=== PATIENT | female | born 1995 | race Caucasian/White ===

== ENCOUNTER → 2020-11-10 | Outpatient (CLI) | payer BC ==
[~2020-11-10] VITALS: Ht 162.6 cm; Wt 100.0 kg
[~2020-11-10] MED LIST: CASIRIVIMAB/IMDEVIMAB 1,200 MG in NS (IVPB) 250 ML IV ONE; EPINEPHrine INJECTION 1 MG/ML AMP IM PRN; diphenhydrAMINE 50 MG/ML INJ (BENADRYL) IV PRN
[2020-11-10 11:30] VITALS: BP 138/96
== END ==
LOC: INFUSION 11:26
PROVIDERS: ATTEND Nurse Practitioner Family
DX: Z23 Encounter for immunization (principal); U07.1 COVID-19

== ENCOUNTER → 2021-05-19 | Outpatient (CLI) | payer BC ==
--- NOTE | 2021-05-19 14:43 | Diagnostic Imaging Report ---
INDICATION: survey. TECHNIQUE: Multiple real-time grayscale images were obtained over the gravid uterus. COMPARISON: None FINDINGS: There is a single live fetus in breech presentation. heart rate was recorded at 153 bpm. Placenta is posterior. No previa is detected. Amniotic fluid volume is normal. Cervical length is 4.5 cm. survey demonstrates kidneys, bladder and stomach to be unremarkable. brain is unremarkable. There is a three-vessel cord with normal insertion. spine is unremarkable. Four chamber heart view as well as outflow tracts are somewhat limited due to position. Biometrical measurements are as follows: Biparietal 4.41 cm, age 19 weeks 3 days. Head circumference 17.17 cm, age 19 weeks 6 days. Abdominal circumference 14.79 cm, age 20 weeks 1 days. Femur length 3.06 cm, age 19 weeks 4 days. Sonographic estimate age: 19 weeks 6 days. Sonographic estimated date of delivery: 10/07/2021. Estimated Weight: 312 gm (+/- 46 gm). LMP percentile: 49%. heart rate: 153 beats per minute. number: 1 of 1. IMPRESSION: 1. Single live IUP 19 weeks 6 days gestational age. Estimated date of confinement sonographic 10/07/2021. 2. Unremarkable survey although four-chamber heart view and outflow tracts was limited due to position. Follow-up could be performed. Dictated by: Dictated on workstation # [id number]
== END ==
LOC: RAD 10:00
PROVIDERS: ATTEND Obstetrics & Gynecology
DX: Z36.3 Encounter for antenatal screening for malformations (principal); Z3A.19 19 weeks gestation of pregnancy
CPT/HCPCS: 76805

== ENCOUNTER → 2021-07-20 | Outpatient (CLI) | payer BC ==
--- NOTE | 2021-07-20 11:07 | Diagnostic Imaging Report ---
INDICATION: Follow-up four-chamber heart view. TECHNIQUE: Multiple real-time grayscale images were obtained over the gravid uterus. COMPARISON: 05/19/2021. FINDINGS: There is a single live fetus in a cephalic presentation. heart rate was recorded at 140 bpm. Placenta is posterior. Amniotic fluid volume is normal. No placenta previa is seen. Cervical length is 3.8 cm. Follow-up of anatomy is unremarkable. Four-chamber heart view is unremarkable. IMPRESSION: Unremarkable follow-up ultrasound. Dictated by: Dictated on workstation # [id number]
== END ==
LOC: RAD 10:00
PROVIDERS: ATTEND Obstetrics & Gynecology
DX: Z36.89 Encounter for other specified antenatal screening (principal)
CPT/HCPCS: 76816

== ENCOUNTER 2021-09-23 08:16 | Inpatient (IN) | payer BC ==
[~2021-09-23] VITALS: Ht 162.6 cm; Wt 113.4 kg
[2021-09-23] VITALS (33 sets, daily range): BP systolic 95–160; BP diastolic 49–106
[2021-09-23 08:43] LABS: BILIRUBIN,URINE NEGATIVE (NEGATIVE); CLARITY,URINE CLEAR; COLOR,URINE YELLOW; GLUCOSE, URINE (UA) NEGATIVE (NEGATIVE); KETONES,URINE NEGATIVE (NEGATIVE); LEUKOCYTE ESTERASE ,URINE NEGATIVE (NEGATIVE); NITRITE,URINE NEGATIVE (NEGATIVE); PH,URINE 6.5 (5-9); PROTEIN,URINE TRACE (NEGATIVE)
[2021-09-23 08:51] LABS: AMORPHOUS SEDIMENT,UR FEW AMOR URATES /LPF; BACTERIA,URINE MODERATE /HPF
[2021-09-23 09:41] LABS: BASOPHILS % (AUTO) 0 % (0-10); EOSINOPHILS # (AUTO) 0.1 10^3/uL (0.0-0.3); EOSINOPHILS % (AUTO) 1 % (0-10); HEMATOCRIT 38 % (35-52); HEMOGLOBIN 12.3 g/dL (11.5-16.0); LYMPHOCYTES % (AUTO) 18 % (12-44); MEAN CORPUSCULAR HEMOGLOBIN 30 pg (25-34); MEAN CORPUSCULAR HGB CONC 33 g/dL (32-36); MEAN CORPUSCULAR VOLUME 92 fL (80-99); MEAN PLATELET VOLUME 10.6 fL (9.0-12.2); MONOCYTES # (AUTO) 0.6 10^3/uL (0.0-1.0); MONOCYTES % (AUTO) 6 % (0-12); NEUTROPHILS # (AUTO) 8.3 10^3/uL (1.8-7.8); NEUTROPHILS % (AUTO) 75 % (42-75); PLATELET COUNT 293 10^3/uL (130-400); WHITE BLOOD COUNT 11.1 10^3/uL (4.3-11.0)
[2021-09-23 09:59] LABS: ALBUMIN 3.3 GM/DL (3.2-4.5); POTASSIUM 3.4 MMOL/L (3.6-5.0)
--- NOTE | 2021-09-23 09:59 | History & Physical ---
History and Physical Date Seen by Provider: Sep 23, 2021 Time Seen by Provider: 14:10 This patient is a 26-year-old 1 female who presents at 37 weeks gestation with complaint of painful contractions and spotting. She does appear to be in labor based on regular contractions lasting about 90 seconds. She is breathing through the contractions and obviously in pain. Her GBS culture was negative. She is admitted now for labor management with anticipation for vaginal delivery. Allergies are none Medications are vitamins Medical social and surgical history is are per the antepartum record HEENT exam is normal Neck is supple no lymphadenopathy no thyromegaly Abdomen is gravid soft nontender nondistended Extremities show no clubbing or cyanosis. There is no Homans' sign. Pelvic exam per the attending nurse shows a cervix 1 cm dilated thinned out maybe 50% somewhat posterior with a vertex presentation and with bloody show Lab work is as follows Laboratory Tests Test 09/23/21 08:35 09/23/21 09:23 Range/Units Urine Color YELLOW Urine Clarity CLEAR Urine pH 6.5 5-9 Urine Specific [place] 1.020 1.016-1.022 Urine Protein 25 H 6-12 MG/DL Urine Glucose (UA) NEGATIVE NEGATIVE Urine Ketones NEGATIVE NEGATIVE Urine Nitrite NEGATIVE NEGATIVE Urine Bilirubin NEGATIVE NEGATIVE Urine Urobilinogen 0.2 < = 1.0 MG/DL Urine Leukocyte Esterase NEGATIVE NEGATIVE Urine RBC (Auto) 3+ H NEGATIVE Urine RBC 10-25 H /HPF Urine WBC 2-5 /HPF Urine Squamous Epithelial Cells 5-10 /HPF Urine Crystals PRESENT H /LPF Urine Amorphous Sediment FEW VINCE URATES H /LPF Urine Bacteria MODERATE H /HPF Urine Casts NONE /LPF Urine Mucus SMALL H /LPF Urine Culture Indicated YES Urine Creatinine 161 H 30-125 MG/DL Urine Protein/Creatinine Ratio 0.16 White Blood Count 11.1 H 4.3-11.0 10^3/uL Red Blood Count 4.08 3.80-5.11 10^6/uL Hemoglobin 12.3 11.5-16.0 g/dL Hematocrit 38 35-52 % Mean Corpuscular Volume 92 80-99 fL Mean Corpuscular Hemoglobin 30 25-34 pg Mean Corpuscular Hemoglobin Concent 33 32-36 g/dL Red Cell Distribution Width 13.3 10.0-14.5 % Platelet Count 293 130-400 10^3/uL Mean Platelet Volume 10.6 9.0-12.2 fL Immature Granulocyte % (Auto) 1 % Neutrophils (%) (Auto) 75 42-75 % Lymphocytes (%) (Auto) 18 12-44 % Monocytes (%) (Auto) 6 0-12 % Eosinophils (%) (Auto) 1 0-10 % Basophils (%) (Auto) 0 0-10 % Neutrophils # (Auto) 8.3 H 1.8-7.8 10^3/uL Lymphocytes # (Auto) 2.0 1.0-4.0 10^3/uL Monocytes # (Auto) 0.6 0.0-1.0 10^3/uL Eosinophils # (Auto) 0.1 0.0-0.3 10^3/uL Basophils # (Auto) 0.0 0.0-0.1 10^3/uL Immature Granulocyte # (Auto) 0.1 0.0-0.1 10^3/uL Vital Signs Date Time Temp Pulse Resp B/P (MAP) Pulse Ox O2 Delivery O2 Flow Rate FiO2 09/23/21 08:38 36.6 96 18 97 Room Air Patient noted to have elevated blood pressures on admission concerning for PIH Assessment and plan Term at 37 weeks gestation spontaneous labor with elevated blood pressure. Patient blood pressure was elevated last time she was seen in clinic concerning for PIH plan will be to admit expectant management initially and plan for vaginal delivery but prepared for if needed 37-week in labor Allergies and Home Medications Allergies Coded Allergies: No Known Drug Allergies (Unverified , 11/10/20) Patient Home Medication List Home Medication List Reviewed: Yes LOLA BUNN MD Sep 23, 2021 09:59
[2021-09-23 10:00] LABS: CALCIUM 8.9 MG/DL (8.5-10.1)
[2021-09-23 10:01] LABS: TOTAL PROTEIN 6.3 GM/DL (6.4-8.2)
[2021-09-23 10:03] LABS: BILIRUBIN,TOTAL 0.3 MG/DL (0.1-1.0)
[2021-09-23 10:05] LABS: CREATININE SERUM 0.66 MG/DL (0.60-1.30)
[2021-09-23 10:08] LABS: URIC ACID 5.4 MG/DL (2.6-7.2)
[2021-09-23] MEDS: LACTATED RINGERS 1,000 ML IV SCH ×2 (10:49→11:53)
[2021-09-23] MEDS ORDERED: fentaNYL INJ 100 MCG/2 ML AMP ONE (11:23)
[2021-09-23] MEDS ORDERED: BUPIVACAINE 0.25% 10 ML (SENSORCAINE) VIAL ONE (11:23)
[2021-09-23] MEDS ORDERED: fentaNYL 2 mcg/ml BUPIVA 0.125 100 ML ONE (11:26)
[2021-09-23] MEDS: fentaNYL 2 mcg/ml BUPIVA 0.125 100 ML EPI PRN ×2 (11:41→21:00)
[2021-09-23] MEDS ORDERED: ONDANSETRON 4 MG/2 ML (SDV) Z0FRAN ONE (11:56)
[2021-09-23] MEDS ORDERED: OXYTOCIN PRE-MIX DRIP 500 ML IV SCH ×2 (12:00→20:00)
[2021-09-23] MEDS: D5 LR IV SOLUTION 1,000 ML IV SCH ×3 (13:30→21:00)
[2021-09-23] MEDS ORDERED: NALOXONE 0.4 MG/ML 1 ML (NARCAN) VIAL IV PRN ×2 (14:30)
[2021-09-23] MEDS ORDERED: ONDANSETRON 4 MG/2 ML (SDV) Z0FRAN IV PRN (14:30)
[2021-09-23] MEDS ORDERED: METOCLOPRAMIDE INJ 10 MG/2 ML (REGLAN) IV PRN (14:30)
[2021-09-23] MEDS ORDERED: EPIDURAL (fentaNYL 2 MCG/ML BUPIVA 0.125%)100 ML BAG EPI PRN (14:30)
[2021-09-23] MEDS ORDERED: diphenhydrAMINE 50 MG/ML INJ (BENADRYL) IV PRN (14:30)
--- NOTE | 2021-09-23 15:53 | Discharge Inst-Surgical ---
Discharge Inst-Surgical Depart Medication/Instructions New, Converted or Re-Newed RX: Transmitted to Pharmacy Consults/Follow Up Orders & Referrals Follow Up Appt: RTC 1 week for incision check. Call to make follow up appt. for patient in 4 weeks. Wound Care: Remove chilango, apply benzoin and steri strips. Activity Per routine post instructions. Prescriptions have been transmitted electronically to patient's pharmacy for discharge medication Diet as tolerated Patient may shower or tub bathe as desired. Continue home meds Activity Activity as Tolerated: No Diet Discharge Diet: No Restrictions LOLA BUNN MD Sep 23, 2021 15:53
[2021-09-23] MEDS ORDERED: LIDOCAINE/EPI 2% 1:200,00 (XYLOCAINE) 10 ML VIAL ONE (18:30)
[2021-09-23] MEDS ORDERED: TETANUS,DIPTH,PERTUSS P/F (BOOSTRIX) 0.5 ML VIAL IM ONE (20:00)
[2021-09-23] MEDS ORDERED: BENZOCAINE/MENTHOL (DERMOPLAST) 56 ML CAN TP PRN ×2 (20:00→22:30)
[2021-09-23] MEDS ORDERED: ONDANSETRON 4 MG/2 ML (SDV) Z0FRAN IVP PRN (20:00)
[2021-09-23] MEDS: DOCUSATE SODIUM 100 MG (COLACE) CAP PO SCH (21:00)
[2021-09-23] MEDS ORDERED: KETOROLAC 30 MG/ML VIAL ONE (21:12)
[2021-09-23] MEDS ORDERED: LIDOCAINE/EPI 2% 1:100,00 (XYLOCAINE) 20 ML VIAL INJ ONE (21:15)
[2021-09-23] MEDS: KETOROLAC 30 MG/ML VIAL IVP SCH (21:17)
[2021-09-23] MEDS ORDERED: WITCH HAZEL(TUCKS) 40 EA JAR TOP PRN (21:30)
[2021-09-23] MEDS ORDERED: oxyCODONE/APAP 5/325MG (PERCOCET 5) TABLET ONE (21:56)
[2021-09-23] MEDS ORDERED: BENZOCAINE/MENTHOL (DERMOPLAST) 56 ML CAN TP ONE (21:57)
[2021-09-23] MEDS: oxyCODONE/APAP 5/325MG (PERCOCET 5) TABLET PO PRN (21:58)
[2021-09-24] MEDS ORDERED: IBUPROFEN 800 MG (MOTRIN) TAB PO SCH
[2021-09-24 00:20] VITALS: BP 122/69
[2021-09-24] MEDS: D5 LR IV SOLUTION 1,000 ML IV SCH ×2 (01:00→05:00)
[2021-09-24] MEDS: oxyCODONE/APAP 5/325MG (PERCOCET 5) TABLET PO PRN (02:00)
--- NOTE | 2021-09-24 03:58 | OPERATIVE REPORT ---
DATE OF SERVICE: 09/23/2021 DELIVERY NOTE The patient delivered by term spontaneous vaginal delivery at 37 weeks gestation a viable female infant with Apgars of and 3, 8, 9 at 1, 5 and 10 minutes respectively. time of 183. Cord blood gas of 7.09 and a weight of 7 pounds 5 ounces. Delivery was accomplished over a second-degree perineal laceration under epidural analgesia. The was bulb suctioned on delivery of the head and again on completion of delivery. Umbilical cord was doubly clamped, the father cut the cord, the baby was taken to the warmer due to the patient's suppressed state on delivery having been pushed from the high station to delivery with 1 to 2 pushes. The recovered promptly. The placenta delivered fairly promptly spontaneously Bhagat. It was normal with a 3-vessel cord. The cervix, vagina, rectum, and perineum were examined and found intact, except for a second-degree perineal laceration that was repaired with a single suture of 3-0 Vicryl Rapide in the usual manner without difficulty, good hemostasis and good reapproximation. Sponge and needle counts were correct on completion of delivery and repair. EBL was around 300 mL. Sponge and needle counts were correct. The patient tolerated the delivery and the repair well and remained in the LDR for recovery. The baby remained with the mom. Job ID: [id number] DocumentID: [id number] Dictated Date: 09/23/2021 19:33:05 Stripper Cutter Machine Date: 09/24/2021 03:57:34 Dictated By: LOLA BUNN MD MTDD
[2021-09-24 04:00] VITALS: BP 122/69
[2021-09-24] MEDS: KETOROLAC 30 MG/ML VIAL IVP SCH (04:09)
[2021-09-24] MEDS: fentaNYL 2 mcg/ml BUPIVA 0.125 100 ML EPI PRN (05:00)
--- NOTE | 2021-09-24 08:21 | Discharge Inst-Surgical ---
Discharge Inst-Surgical Depart Medication/Instructions New, Converted or Re-Newed RX: Transmitted to Pharmacy Consults/Follow Up Orders & Referrals Follow Up Appt: Call to make follow up appt. for patient in 4 weeks. Activity Per routine post vaginal delivery instructions. Prescriptions have been sent to this patient's pharmacy electronically from my office Diet as tolerated Patient may shower or tub bathe as desired. Activity Activity as Tolerated: No Diet Discharge Diet: No Restrictions LOLA BUNN MD Sep 24, 2021 08:21
--- NOTE | 2021-09-24 08:37 | Progress Note ---
Standard Progress Note Progress Notes/Assess & Plan Date Seen by a Provider: Sep 24, 2021 Time Seen by a Provider: 08:37 Progress/Assessment & Plan Patient is without complaint. She is ambulating, voiding, tolerating oral intake well and has good pain control. Vital Signs Date Time Temp Pulse Resp B/P (MAP) Pulse Ox O2 Delivery O2 Flow Rate FiO2 09/24/21 04:00 36.4 87 18 122/69 (86) 97 Room Air 09/24/21 00:20 36.8 83 18 122/69 (86) 97 Room Air 09/23/21 22:05 37.0 90 18 136/68 (90) 98 Room Air 09/23/21 19:45 98 18 132/84 (100) Room Air 09/23/21 19:00 100 18 151/99 (116) Room Air 09/23/21 18:45 37.0 97 18 142/88 (106) Room Air 09/23/21 18:30 18 Non Rebreather 09/23/21 18:21 15 Non Rebreather 09/23/21 18:15 18 Room Air 09/23/21 18:00 18 Room Air 09/23/21 17:45 18 Room Air 09/23/21 17:30 82 18 132/81 (98) Room Air 09/23/21 17:15 98 18 156/106 (123) Room Air 09/23/21 17:00 84 18 159/102 (121) Room Air 09/23/21 16:45 86 18 159/95 (116) Room Air 09/23/21 16:30 90 18 156/105 (122) Room Air 09/23/21 16:15 107 18 139/92 (108) Room Air 09/23/21 16:00 18 Room Air 09/23/21 15:45 18 Room Air 09/23/21 15:30 18 Room Air 09/23/21 15:15 18 Room Air 09/23/21 15:00 83 18 125/88 (100) Room Air 09/23/21 14:45 85 18 145/89 (107) 100 Room Air 09/23/21 14:30 83 18 160/95 (116) 100 Room Air 09/23/21 14:15 75 18 138/83 (101) 100 Room Air 09/23/21 14:00 87 18 127/87 (100) 100 Room Air 09/23/21 13:45 83 18 134/78 (96) 100 Room Air 09/23/21 13:30 35.4 98 18 139/81 (100) 100 Room Air 09/23/21 13:15 86 18 132/79 (96) 100 Room Air 09/23/21 13:00 81 18 135/85 (102) 99 Room Air 09/23/21 12:45 84 18 120/65 (83) 100 Room Air 09/23/21 12:30 91 18 113/66 (82) 100 Room Air 09/23/21 12:15 107 18 111/67 (82) 100 Room Air 09/23/21 12:05 99 18 126/67 (86) 99 Room Air 09/23/21 12:00 98 18 98/61 (73) 99 Room Air 09/23/21 11:57 100 18 99/54 (69) 100 Room Air 09/23/21 11:50 127 18 95/49 (64) 100 Room Air 09/23/21 11:45 127 18 95/49 (64) 100 Room Air 09/23/21 11:40 113 18 132/80 (97) 100 Room Air 09/23/21 11:35 86 18 159/89 (112) 100 Room Air 09/23/21 11:30 Room Air 09/23/21 11:00 Room Air 09/23/21 10:30 Room Air 09/23/21 10:15 78 18 137/99 (112) Room Air 09/23/21 10:00 90 18 134/98 (110) Room Air 09/23/21 08:38 36.6 96 18 97 Room Air I & O 09/24/21 07:00 Intake Total 2500 ml Balance 2500 ml Vital signs are stable. Patient is afebrile. Abdomen is benign. Fundus is firm below the umbilicus and nontender. Extremities show no clubbing or cyanosis. There is no Homans' sign. Assessment and plan Postop/ day #1 status post 37-week spontaneous vaginal delivery doing well. Plans for routine convalescent care today and discharge home tomorrow LOLA BUNN MD Sep 24, 2021 08:37
[2021-09-24 08:42] VITALS: BP 120/72
[2021-09-24] MEDS: DOCUSATE SODIUM 100 MG (COLACE) CAP PO SCH ×2 (09:04→22:02)
--- NOTE | 2021-09-24 11:34 | Anesthesia-Regional Post-Op ---
Regional Patient Condition Mental Status: Alert, Oriented x3 Circulation: Same as Pre-Op Headache: Absent Sensation: Full Recovery Motor Block: Absent Post Op Complications Complications None Follow Up Care/Instructions Patient Instructions None needed. Anesthesia/Patient Condition Patient is doing well, no complaints, stable vital signs, no apparent adverse anesthesia problems. No complications reported per nursing. VERONIKA ESPINOZA CRNA Sep 24, 2021 11:34
[2021-09-24] MEDS: IBUPROFEN 800 MG (MOTRIN) TAB PO SCH ×2 (12:14→18:03)
[2021-09-24 12:33] VITALS: BP 131/70
[2021-09-24 16:16] VITALS: BP 128/69
--- NOTE | 2021-09-24 20:37 | Progress Note ---
Standard Progress Note Progress Notes/Assess & Plan Date Seen by a Provider: Sep 24, 2021 Time Seen by a Provider: 20:36 Progress/Assessment & Plan Patient is without complaint. She is ambulating, voiding, tolerating oral intake well and has good pain control. Vital Signs Date Time Temp Pulse Resp B/P (MAP) Pulse Ox O2 Delivery O2 Flow Rate FiO2 09/24/21 04:00 36.4 87 18 122/69 (86) 97 Room Air 09/24/21 00:20 36.8 83 18 122/69 (86) 97 Room Air 09/23/21 22:05 37.0 90 18 136/68 (90) 98 Room Air 09/23/21 19:45 98 18 132/84 (100) Room Air 09/23/21 19:00 100 18 151/99 (116) Room Air 09/23/21 18:45 37.0 97 18 142/88 (106) Room Air 09/23/21 18:30 18 Non Rebreather 09/23/21 18:21 15 Non Rebreather 09/23/21 18:15 18 Room Air 09/23/21 18:00 18 Room Air 09/23/21 17:45 18 Room Air 09/23/21 17:30 82 18 132/81 (98) Room Air 09/23/21 17:15 98 18 156/106 (123) Room Air 09/23/21 17:00 84 18 159/102 (121) Room Air 09/23/21 16:45 86 18 159/95 (116) Room Air 09/23/21 16:30 90 18 156/105 (122) Room Air 09/23/21 16:15 107 18 139/92 (108) Room Air 09/23/21 16:00 18 Room Air 09/23/21 15:45 18 Room Air 09/23/21 15:30 18 Room Air 09/23/21 15:15 18 Room Air 09/23/21 15:00 83 18 125/88 (100) Room Air 09/23/21 14:45 85 18 145/89 (107) 100 Room Air 09/23/21 14:30 83 18 160/95 (116) 100 Room Air 09/23/21 14:15 75 18 138/83 (101) 100 Room Air 09/23/21 14:00 87 18 127/87 (100) 100 Room Air 09/23/21 13:45 83 18 134/78 (96) 100 Room Air 09/23/21 13:30 35.4 98 18 139/81 (100) 100 Room Air 09/23/21 13:15 86 18 132/79 (96) 100 Room Air 09/23/21 13:00 81 18 135/85 (102) 99 Room Air 09/23/21 12:45 84 18 120/65 (83) 100 Room Air 09/23/21 12:30 91 18 113/66 (82) 100 Room Air 09/23/21 12:15 107 18 111/67 (82) 100 Room Air 09/23/21 12:05 99 18 126/67 (86) 99 Room Air 09/23/21 12:00 98 18 98/61 (73) 99 Room Air 09/23/21 11:57 100 18 99/54 (69) 100 Room Air 09/23/21 11:50 127 18 95/49 (64) 100 Room Air 09/23/21 11:45 127 18 95/49 (64) 100 Room Air 09/23/21 11:40 113 18 132/80 (97) 100 Room Air 09/23/21 11:35 86 18 159/89 (112) 100 Room Air 09/23/21 11:30 Room Air 09/23/21 11:00 Room Air 09/23/21 10:30 Room Air 09/23/21 10:15 78 18 137/99 (112) Room Air 09/23/21 10:00 90 18 134/98 (110) Room Air 09/23/21 08:38 36.6 96 18 97 Room Air I & O 09/24/21 07:00 Intake Total 2500 ml Balance 2500 ml Vital signs are stable. Patient is afebrile. Abdomen is benign. Fundus is firm below the umbilicus and nontender. Extremities show no clubbing or cyanosis. There is no Homans' sign. Assessment and plan Postop/ day #1 status post 37-week spontaneous vaginal delivery doing well. Plans for routine convalescent care today and discharge home tomorrow September 24, 2021 Patient is without complaint. She is ambulating, voiding, tolerating oral intake well and has good pain control. She plans for discharge home tomorrow Vital Signs Date Time Temp Pulse Resp B/P (MAP) Pulse Ox O2 Delivery O2 Flow Rate FiO2 09/24/21 16:16 36.7 82 16 128/69 (88) 97 Room Air 09/24/21 12:33 36.9 89 18 131/70 (90) 98 Room Air 09/24/21 08:42 36.8 85 16 120/72 (88) 98 Room Air 09/24/21 04:00 36.4 87 18 122/69 (86) 97 Room Air 09/24/21 00:20 36.8 83 18 122/69 (86) 97 Room Air 09/23/21 22:05 37.0 90 18 136/68 (90) 98 Room Air I & O 09/24/21 07:00 Intake Total 2500 ml Balance 2500 ml The abdomen is benign. The fundus is firm below the umbilicus and nontender. Extremities show no clubbing or cyanosis. There is no Homans' sign. Assessment and plan day 1 status post term spontaneous vaginal delivery doing well. Plan is for routine convalescent care with discharge home tomorrow Final Diagnosis 37-week spontaneous vaginal delivery LOLA BUNN MD Sep 24, 2021 20:37
[2021-09-25 00:06] VITALS: BP 151/90
[2021-09-25] MEDS: IBUPROFEN 800 MG (MOTRIN) TAB PO SCH ×2 (00:06→06:13)
[2021-09-25 06:12] VITALS: BP 136/91
[2021-09-25] MEDS: DOCUSATE SODIUM 100 MG (COLACE) CAP PO SCH (09:06)
[2021-09-25 09:10] VITALS: BP 144/95
--- NOTE | 2021-09-25 09:33 | Postpartum Progress Note ---
Note Note Day # 2 Subjective: Patient is without complaints. Ambulating, voiding. Tolerating a regular diet without nausea or vomiting. Normal lochia. Pain is well controlled with oral pain medications. Physical Exam: General - Alert and oriented, no apparent distress Abdomen - Soft, appropriately tender to palpation, non-distended, fundus firm at umbilicus Extremities - no edema, negative Neymar's bilaterally Assessment: Post- day # 2, status post spontaneous vaginal delivery at 37wks Recovering well, hemodynamically stable Plan: Routine care. Encourage breast feeding. Encourage ambulation. Plan for discharge today (patient to room-in until baby is ready for DC) Vitals - Labs Vital Signs - I&O Vital Signs Date Time Temp Pulse Resp B/P (MAP) Pulse Ox O2 Delivery O2 Flow Rate FiO2 09/25/21 06:12 36.5 84 18 136/91 (106) 97 Room Air 09/25/21 00:06 36.9 100 18 151/90 (110) 98 Room Air 09/24/21 16:16 36.7 82 16 128/69 (88) 97 Room Air 09/24/21 12:33 36.9 89 18 131/70 (90) 98 Room Air Labs Microbiology 09/23/21 Urine Culture - Final, Complete Mixed Bacterial Sydney MARGARET WATKINS [employer] DIRECT[employer] Sep 25, 2021 09:33
== END 2021-09-25 10:00 | disposition home or self-care (01) | DRG 807 ==
LOC: WSo 08:16 → LDRP 08:17 → WSo 09:56 → LDRP 09:56
PROVIDERS: ADMIT Obstetrics & Gynecology; ATTEND Obstetrics & Gynecology
PROC: 10E0XZZ Delivery of Products of Conception, External Approach (ICD-10-PCS; principal; 2021-09-23)
PROC: 0KQM0ZZ Repair Perineum Muscle, Open Approach (ICD-10-PCS; 2021-09-23)
DX: O70.1 Second degree perineal laceration during delivery (principal); Z37.0 Single live birth; Z3A.37 37 weeks gestation of pregnancy
CPT/HCPCS: 36415; 80053; 81000; 82570; 83615; 84156; 84550; 85025; 86850; 86900; 86901; 87088